=== PATIENT | male | born 1985 | race Caucasian/White ===

== ENCOUNTER 2020-04-26 10:44 | Outpatient (REF) | payer MEDICAID, SELFPAY | END 2020-04-26 10:45 | disposition home or self-care (01) | LOC: HO.LAB 10:44 | PROVIDERS: Visit Provider Internal Medicine | DX: Z20.822 Contact with and (suspected) exposure to COVID-19 (principal) | CPT/HCPCS: 36415; C9803; U0003; U0005 ==

== ENCOUNTER 2021-06-23 16:35 | Emergency (ER) | payer MEDICAID, SELFPAY ==
--- NOTE | ~2021-06-23 | XR_ITS ---
EXAMINATION: XR CHEST CLINICAL INFORMATION: Fevers chills and cough. Influenza a positive COMPARISON: 06/11/2017 and 10/31/2016 TECHNIQUE: 2 frontal views of the chest and one lateral view. FINDINGS: No lower respiratory tract infection. No focal pneumonia. Suboptimal depth of inspiration. Lung volumes grossly preserved. Heart and mediastinum within normal limits for technique. Normal gas pattern. No acute osseous finding. XR/XR chest 2V IMPRESSION: No acute disease. No focal pneumonia
[2021-06-23 16:51] VITALS: BP 147/92; PULSE 112; RESP 18; TEMP 36; O2SAT 97; BMI 33.4
[2021-06-23 17:31] LABS: Influenza A Positive (Negative); Influenza B2 Negative (Negative)
[2021-06-23 17:32] LABS: COVID-19 Test Negative (Negative); IDNOW Serial# 16C4AD1C
[2021-06-23] MEDS: predniSONE 20 MG TABLET 60 MG PO (17:48)
[2021-06-23] MEDS: Albuterol Sulfate 90 MCG 8 GM INHALER 2 PUFF INHALE (17:52)
[2021-06-23 17:53] VITALS: PULSE 112; O2SAT 97
--- NOTE | 2021-06-23 18:03 | ED.FEVER ---
HPI - Fever General Chief Complaint: Fever Stated Complaint: Flu like symptoms Time Seen by Provider: 06/23/21 17:37 Source: patient and family Mode of arrival: ambulatory Limitations: language barrier (Irish-speaking) History of Present Illness HPI Narrative: 36-year-old male who is Irish-speaking presenting to the ED with significant other at bedside with complaints of subjective fevers, chills, fatigue, malaise, myalgias, nasal congestion/rhinorrhea, dry cough with wheezing for the past 2 days worse today. Reports that he is not vaccinated to COVID a flu. Reports that he has an autistic son who has therapist and nurses that come to the house and 1 of them must have been sick per the significant other and her children has similar symptoms. He denies any recent travel. He denies any dizziness, neck pain/stiffness, trouble swallowing or breathing, chest pain or shortness of breath, dyspnea on exertion, orthopnea, palpitations, paresthesias, nausea/vomiting/diarrhea constipation, black or bloody stools, abdominal pain, dysuria, hematuria, abnormal penile discharge, lower extremity edema or calf tenderness or any other symptoms complaints or concerns at this time. MD elicited complaint: fever and malaise Onset (ago): day(s) (2) Context: other(s) with similar symptoms Exacerbating factors: nothing Relieving factors: acetaminophen and ibuprofen Associated symptoms: chills, myalgias, rhinorrhea, nasal congestion and cough Treatments prior to arrival fever: none Related Data Previous Rx's Medication Instructions Recorded acetaminophen 500 mg tablet 1,000 mg PO QID PRN #14 tab 06/23/21 (Tylenol Extra Strength) codeine 10 mg-guaifenesin 100 mg/5 5 ml PO Q6H PRN #120 ml 06/23/21 mL oral liquid (Guaifenesin AC) ibuprofen 800 mg tablet 800 mg PO Q8H PRN #14 tab 06/23/21 oseltamivir 75 mg capsule (Tamiflu) 75 mg PO BID 5 Days #10 cap 06/23/21 prednisone 20 mg tablet 40 mg PO DAILY 5 Days #10 tab 06/23/21 Allergies Allergy/AdvReac Type Severity Reaction Status Date / Time No Known Allergies Allergy Unverified 11/20/19 19:20 Review of Systems Review of Systems: Constitutional : + subjective fevers/chills/fatigue/malaise, No Weight loss, No Night Sweats ENT/Mouth : + nasal congestion/rhinorrhea, No Hearing loss, No Ear Pain, No Sinus Pain, No Hoarseness, No sore throat, No Swallowing Difficulty Eyes: No Eye Pain, No Swelling, No Redness, No Foreign Body, No Discharge, No Vision Changes Cardiovascular : No Chest Pain, No SOB, No Dyspnea on Exertion, No Orthopnea, No Edema, No Palpitations Respiratory : + Cough, No Sputum, + Wheezing, No Smoke Exposure, No Dyspnea Gastrointestinal : No Nausea, No Vomiting, No Diarrhea, No Constipation, No abdominal Pain, No Hematochezia, No Melena Genitourinary : no irregular bleeding, No Dysuria, No Urinary Frequency, No Hematuria, No Urinary Incontinence, No Urgency, No Flank Pain, No Urinary Flow Changes, No Hesitancy Musculoskeletal : No joint pain, + Myalgias, No Joint Swelling Skin : No Skin Lesions, No rash Neuro : No Weakness, No Numbness, No Paresthesias, No Loss of Consciousness, No Dizziness, No Headache Psych : No Anxiety/Panic, No Depression, No SI/HI/AH/VH, No Social Issues, Heme/Lymph: No Bruising, No Bleeding,No Lymphadenopathy Endocrine : No Polyuria, No Polydipsia, No Temperature Intolerance Yes all other systems are reviewed and are negative [facility] Past Medical History Attestation statement: The following information was validated with the patient. Social History Social History Advance Directives: No Advance Directives Information Provided: No Physical Exam Vital Signs: Vital Signs: Last Vital Signs Temp 101.2 F H 06/23/21 18:10 Pulse 104 H 06/23/21 18:10 Resp 17 06/23/21 18:10 BP 153/98 H 06/23/21 18:10 Pulse Ox 97 06/23/21 18:10 BMI result Body Mass Index 33.4 vital signs have been reviewed as normal and appeared to be correct. Blood pressure 147/92. Heart rate 112. Respiration rate normal. Temperature normal. Oxygen saturation normal. Appearance: Alert. Oriented X3. No acute distress. Head: Normal external exam. Normocephalic. Atraumatic. Eyes: PERRLA. EOMI. Conjunctiva and sclera normal. Eyelids normal. ENT: EAC normal. TM's Normal. No septal hematoma noted. No hemotympanum noted. Pharynx normal. Uvula midline. Moist mucous membranes. No lesions/ulcerations or masses noted on the tongue. Normal voice. No trismus noted. No drooling noted. No muffled voice noted. Neck: Normal inspection. Neck supple. FROM. No adenopathy. Thyroid Normal. No tracheal deviation noted. No crepitus is noted. No meningeal signs. No neck mass noted. No signs of trauma noted. CVS: Normal heart rate and rhythm. Heart sound normal. Pulses normal throughout. No murmurs/rales/gallops. Respiratory: No respiratory distress. Painless inspiration. Patient has mild decreased breath sounds with inspiratory and expiratory wheezing in the lower bases. No rhonchi/rales noted. Chest nontender. No crepitus is noted. No signs of trauma noted. No accessory muscle usage noted or decreased air movement noted. No signs of trauma. Abdomen: Soft and nontender. Bowel sounds normal in all 4 quadrants. No distention noted. No organomegaly noted. No visible injury noted. Back: No CVA tenderness. Full range of motion noted. Nontender. No signs of trauma. Patient neuro intact bilaterally and distally on all 4 extremities. Patient's reflexes intact bilaterally and distally on all 4 extremities. No rashes/lesion/induration/fluctuance or signs of infection noted. Skin: Skin warm and dry. Normal skin color. Normal skin turgor. No rashes/lesions/lacerations noted. Extremities: No lower extremity edema. No calf tenderness is noted. Extremities exhibit normal range of motion and nontender. Neuro: Oriented X 3. No motor deficit. No sensory deficit. Reflexes normal. Normal steady gait. No focal neuro deficits noted. CN's II-XII intact bilaterally? Vascular: + radial pulses/+ 2 distal pedal pulses/+2 dorsalis pedis b/l. Normal cap refill. No cyanosis noted to upper extremity nails and lower extremity toes nails. Course Course Course Narrative: 5:45pm - 36-year-old male who is Irish-speaking presenting to the ED with significant other at bedside with complaints of subjective fevers, chills, fatigue, malaise, myalgias, nasal congestion/rhinorrhea, dry cough with wheezing for the past 2 days worse today. Reports that he is not vaccinated to COVID a flu. Reports that he has an autistic son who has therapist and nurses that come to the house and 1 of them must have been sick per the significant other and her children has similar symptoms. Patient positive for influenza A. Will obtain a chest x-ray. Provide an albuterol inhaler and 60 mg of prednisone. Then re-evaluate. Reevaluation(s) Reevaluation #1: Chest x-ray negative. Will DC home with Tamiflu and prednisone and albuterol inhaler and instructions return if any new or worsening symptoms. Patient and significant other at bedside understand agree this plan. Time: 18:30 MDM - Fever Medical Records Attestation: I reviewed the patient's medical records. Lab Data Attestation: I reviewed the patient's lab results. Labs: Lab Results 06/23/21 06/23/21 Range/Units 16:58 16:58 COVID-19 (BEAU) Negative (Negative) COVID-19 Clin Com See Note Influenza Type A (SARBJIT) Positive A (Negative) Influenza Type B (SARBJIT) Negative (Negative) Influenza A & B Note See Note Imaging Data Chest x-ray: Attestation: I personally reviewed and interpreted this imaging study as follows: Radiologist's impression: FINDINGS: No lower respiratory tract infection. No focal pneumonia. Suboptimal depth of inspiration. Lung volumes grossly preserved. Heart and mediastinum within normal limits for technique. Normal gas pattern. No acute osseous finding. XR/XR chest 2V IMPRESSION: No acute disease. No focal pneumonia Discharge Plan Discharge Clinical Impression: Influenza A, Fever Patient Disposition: Home, Self-Care Instructions: Fever in Adults (ED), Influenza (DC), Flu Shot (Vaccine) for Adults (ED) Prescriptions: New oseltamivir [Tamiflu] 75 mg capsule 75 mg PO BID 5 Days Qty: 10 0RF prednisone 20 mg tablet 40 mg PO DAILY 5 Days Qty: 10 0RF acetaminophen [Tylenol Extra Strength] 500 mg tablet 1,000 mg PO QID PRN (Reason: fever or pain) Qty: 14 0RF ibuprofen 800 mg tablet 800 mg PO Q8H PRN (Reason: pain) Qty: 14 0RF codeine-guaifenesin [Guaifenesin AC] 10-100 mg/5 mL liquid 5 ml PO Q6H PRN (Reason: cold symptoms) Qty: 120 0RF Referrals: [place] [Primary Care Provider] - Stand Alone Forms: Work/School Release Print Language: Irish
[2021-06-23 18:10] VITALS: BP 153/98; PULSE 104; RESP 17; TEMP 38.4; O2SAT 97
[2021-06-23] MEDS: Ibuprofen 800 MG TABLET PO (18:15)
== END 2021-06-23 18:42 | disposition home or self-care (01) ==
PROVIDERS: Student in an Organized Health Care Education/Training Program; Emergency Provider Internal Medicine
DX: J10.1 Influenza due to other identified influenza virus with other respiratory manifestations (principal); R50.9 Fever, unspecified; M79.10 Myalgia, unspecified site; R05.9 Cough, unspecified; Z20.822 Contact with and (suspected) exposure to COVID-19; Z79.899 Other long term (current) drug therapy
CPT/HCPCS: 71046; 87502; 87635; 94640; 94664; 99284

== ENCOUNTER 2022-11-10 14:52 | Outpatient (REF) | payer MEDICAID, SELFPAY ==
--- NOTE | ~2022-11-10 | XR_ITS ---
EXAMINATION: XR HAND, RIGHT CLINICAL INFORMATION: Point tenderness COMPARISON: None available. TECHNIQUE: PA, lateral, and oblique views of the right hand. FINDINGS: The bones and soft tissues are normal. No fracture. Alignment is anatomic. Joint spaces are maintained. No erosions or soft tissue calcifications. XR/XR hand RT min 3V IMPRESSION: Normal right hand.
== END 2022-11-10 14:53 | disposition home or self-care (01) ==
LOC: HO.HHCX 14:52
PROVIDERS: Visit Provider Student in an Organized Health Care Education/Training Program
DX: M79.641 Pain in right hand (principal)
CPT/HCPCS: 73130

== ENCOUNTER 2022-11-10 16:03 | Outpatient (REF) | payer MEDICAID, SELFPAY ==
[2022-11-10 17:31] LABS: MANUAL DIFF FLAG NO
[2022-11-10 17:39] LABS: Basophils Absolute Auto 0.1 X10*3/uL (0.0-0.2); Basophils Percent Auto 0.4 % (0-2); Eosinophils Absolute Auto 0.2 X10*3/uL (0.0-0.4); Eosinophils Percent Auto 1.1 % (0-4); Hematocrit 46.3 % (42.0-52.0); Hemoglobin 15.7 g/dl (14.0-18.0); Imm Gran Abs Auto 0.04 X10*3/uL (0.00-0.03); Imm Gran Pct Auto 0.3 % (0.0-0.4); Lymphocytes Absolute Auto 2.8 X10*3/uL (1.2-4.9); Lymphocytes Percent Auto 21.2 % (20-40); Mean Corpuscular HGB Conc 33.9 g/dl (31.0-36.0); Mean Corpuscular Volume 85.6 fL (80.0-98.0); Mean Platelet Volume 9.7 fL (9.4-12.4); Monocytes Absolute Auto 0.9 X10*3/uL (0.1-1.2); Monocytes Percent Auto 6.4 % (2-11); Neutrophils Absolute Auto 9.3 x10*3/uL (2.0-8.3); Neutrophils Percent Auto 70.6 % (45-73); Platelet Count 301 X10*3/uL (160-400); Red Blood Count 5.41 X10*6/uL (4.60-5.80); Red Cell Distribution Width 13.9 % (11.0-16.0); White Blood Count 13.2 X10*3/uL (4.8-10.8)
[2022-11-10 17:57] LABS: Alanine Aminotransferase 31 U/L (0-40); Albumin Level 4.3 g/dL (3.5-5.0); Alkaline Phosphatase 84 U/L (39-117); Anion Gap 11 (12-20); Aspartate Amino Transferase 18 U/L (5-37); Bilirubin Total 0.4 mg/dL (0.0-1.0); Blood Urea Nitrogen 10 mg/dL (9-16); Carbon Dioxide 27 mmol/L (22-29); Chloride 102 mmol/L (96-108); Estimated Glomerular Filt Rate > 60; Glucose Random 83 mg/dL (60-115); Potassium 4.3 mmol/L (3.3-5.1); Sodium 136 mmol/L (135-145); Total Protein 7.3 g/dL (6.5-8.0); Uric Acid 6.1 mg/dL (3.4-7.0)
[2022-11-10 18:14] LABS: TSH reflex Free T4 1.26 uIU/mL (0.32-4.0)
== END 2022-11-10 16:04 | disposition home or self-care (01) ==
LOC: HO.HHCL 16:03
PROVIDERS: Visit Provider Student in an Organized Health Care Education/Training Program
DX: M79.641 Pain in right hand (principal)
CPT/HCPCS: 36415; 80053; 84443; 84550; 85025

== ENCOUNTER 2023-10-14 20:55 | Emergency (ER) | payer MEDICAID, SELFPAY ==
[2023-10-14 21:09] VITALS: BP 133/86; PULSE 88; RESP 18; TEMP 36.8; O2SAT 96; BMI 33.2
[2023-10-14 23:14] VITALS: BP 140/78; PULSE 86; RESP 16; TEMP 37.2; O2SAT 98
--- NOTE | 2023-10-15 00:16 | ED_ITS ---
HPI - General Adult General Chief complaint: Skin/Abscess/Foreign Body Stated complaint: lump on abdomen Time Seen by Provider: 10/15/23 00:16 History of Present Illness ED Provider: Hilario TALLEY narrative: The patient is a 38-year-old male who is generally healthy who is here for evaluation of some redness and pain on the skin of his lower abdomen. He says that he has had a bump for some time on his skin in his area that he attributes to his belt. He has never had an infection in this area before. No definite fever, sweats, chills. No nausea or vomiting. He reports increased urination however. Related Data Previous Rx's ?Medication ?Instructions ?Recorded acetaminophen 500 mg tablet 1,000 mg (2 x 500 mg) PO QID PRN 06/23/21 (Tylenol Extra Strength) fever or pain #14 tabs codeine 10 mg-guaifenesin 100 mg/5 5 ml PO Q6H PRN cold symptoms #120 06/23/21 mL oral liquid (Guaifenesin AC) mL ibuprofen 800 mg tablet 800 mg PO Q8H PRN pain #14 tabs 06/23/21 oseltamivir 75 mg capsule (Tamiflu) 75 mg PO BID 5 days #10 caps 06/23/21 prednisone 20 mg tablet 40 mg (2 x 20 mg) PO DAILY rash 5 06/23/21 days #10 tabs cephalexin 500 mg capsule 500 mg PO QID 8 days #32 caps 10/15/23 sulfamethoxazole 800 1 tab PO BID 8 days #16 tabs 10/15/23 mg-trimethoprim 160 mg tablet (Bactrim DS) Allergies Allergy/AdvReac Type Severity Reaction Status Date / Time No Known Allergies Allergy Unverified 10/14/23 21:18 Review of Systems Review of Systems: Yes all other systems are reviewed and are negative PMFSH Social History Social History Advance Directives: No Advance Directives Information Provided: Yes Do you have a plan to hurt others: No Plan Physical Exam ED Vital Signs: Vital Signs - 24 hr 10/14/23 21:09 10/14/23 23:14 Temperature 98.2 F 98.9 F Pulse Rate 88 86 Respiratory Rate 18 16 Blood Pressure 133/86 140/78 H Pulse Oximetry 96 98 Oxygen Delivery Method Room Air Room Air BMI result Body Mass Index 33.2 Const Other: Patient is a healthy looking 38-year-old who does not appear in acute distress. HENMT Other: The face is symmetrical. ?Mucous membranes moist. Eyes Other: Pupils are round equal, conjunctivae are clear, extraocular movements intact Neck Other: Moving his neck easily Resp Effort & Inspection: normal respiratory effort Auscultation: clear to auscultation bilaterally Cardio Rate: regular rate Rhythm: regular rhythm Heart sounds: S2 normal heart sound present GI Other: The patient has erythema to the skin of the lower abdomen. The patient has an area of particular tenderness to the right of the midline in the lower abdomen and there is an area of soft tissue swelling which seems particularly tender but not necessarily fluctuant. There is also an area of prominence and what seems to be mild swelling to the left of the midline but this is not tender and the patient says this is chronic. Skin Other: The skin is intact. There is erythema to the skin of the lower abdomen at the belt line. There is some soft tissue swelling on the right side of the midline which is most tender. No drainage. Neuro Other: The patient is awake, alert, appropriate and grossly neurologically intact. Extrem Other: Extremities are unremarkable, no deformities Medications Administered Discontinued Medications Generic Name Dose Route Start Last Admin Trade Name Freq PRN Reason Stop Dose Admin Cephalexin HCl 1,000 mg 10/15/23 00:53 10/15/23 01:29 Cephalexin 500 Mg Capsule PO 10/15/23 00:54 1,000 mg ONCE ONE Administration Trimethoprim/Sulfamethoxazole 1 tab 10/15/23 00:58 10/15/23 01:29 Sulfamethox/Trimeth 800/160 Tablet PO 10/15/23 00:59 1 tab ONCE ONE Administration Medical Decision Making Medical Decision Making [facility] Narrative: Patient has a soft tissue skin infection to the skin of the lower abdominal wall at the level of the belt line. To the right of the midline is an area of swelling which may represent an early abscess. I performed a bedside ultrasound that did not show any significant amount of fluid accumulation. There may be some sebaceous material present. Given the absence of significant fluid on ultrasound I felt that this would not be an appropriate case for incision and drainage. The patient was started on cephalexin and sulfamethoxazole and will be discharged to follow up with his PCP. Lab Data Labs: Lab Results 10/15/23 Range/Units 00:46 Urine Color Yellow Urine Appearance Clear Urine pH 5.5 (5.0-9.0) Ur Specific [place] >= 1.030 H (1.005-1.025) Urine Protein Negative (Neg-Trace) mg/dL Urine Glucose (UA) Negative (Negative) mg/dL Urine Ketones Trace (Negative) mg/dL Urine Blood Negative (Negative) Urine Nitrite Negative (Negative) Ur Leukocyte Esterase Negative (Negative) Discharge Plan Discharge Clinical Impression: Cellulitis of abdominal wall Patient Disposition: Home, Self-Care Instructions: Cellulitis (ED) Additional Instructions: You have an infection in the skin of your lower abdomen. This kind of infection is called a cellulitis. You have been started on two antibiotics. Please take the cephalexin 4 times a day, approximately every 6 hours. Please take the sulfamethoxazole/trimethoprim (Bactrim) 2 times a day, approximately every 12 hours. Please try to make an appointment with a primary care doctor for follow up. If you feel things are getting significantly worse please return to the emergency room for another evaluation. Prescriptions: New cephalexin 500 mg capsule 500 mg PO QID 8 Days Qty: 32 0RF sulfamethoxazole-trimethoprim [Bactrim DS] 800-160 mg tablet 1 tab PO BID 8 Days Qty: 16 0RF No Action oseltamivir [Tamiflu] 75 mg capsule 75 mg PO BID 5 Days Qty: 10 0RF prednisone 20 mg tablet 40 mg PO DAILY 5 Days Qty: 10 0RF acetaminophen [Tylenol Extra Strength] 500 mg tablet 1,000 mg PO QID PRN (Reason: fever or pain) Qty: 14 0RF ibuprofen 800 mg tablet 800 mg PO Q8H PRN (Reason: pain) Qty: 14 0RF codeine-guaifenesin [Guaifenesin AC] 10-100 mg/5 mL liquid 5 ml PO Q6H PRN (Reason: cold symptoms) Qty: 120 0RF Referrals: Christi Hollis [employer] [Nurse Practitioner] - (abdominal wall cellulitis) Interventions: ED Discharge Assessment Last Done: 10/15/23 01:12 Discharge Date/Time: 10/15/23 01:35 Print Language: Faroese
[2023-10-15 00:59] LABS: Appearance Urine Clear; Color Urine Yellow; Glucose Urine UA Negative (Negative); Leukocyte Esterase Urine Negative (Negative); Nitrite Urine Negative (Negative); PH 5.5 (5.0-9.0); Specific Gravity - Urine >= 1.030 (1.005-1.025); Urine Blood Negative (Negative); Urine Ketones Trace mg/dL (Negative); Urine Protein Negative (Neg-Trace)
[2023-10-15 01:12] VITALS: BP 140/78; PULSE 86; RESP 16; TEMP 37.2; O2SAT 98
[2023-10-15] MEDS: cephALEXin 500 MG CAPSULE 1000 MG PO (01:29)
[2023-10-15] MEDS: Sulfamethox/Trimeth 800/160 TABLET 1 TAB PO (01:29)
== END 2023-10-15 01:35 | disposition home or self-care (01) ==
PROVIDERS: Emergency Provider Emergency Medicine
DX: L03.311 Cellulitis of abdominal wall (principal); R35.0 Frequency of micturition
CPT/HCPCS: 81003; 99283

== ENCOUNTER → 2023-11-14 15:45 | Outpatient (REF) | payer MEDICAID, SELFPAY | LOC: HO.SL 15:45 | PROVIDERS: PCP Nurse Practitioner Primary Care; Visit Provider Nurse Practitioner Primary Care | DX: R04.0 Epistaxis (principal); R06.83 Snoring | CPT/HCPCS: 95806 ==

== ENCOUNTER → 2023-11-14 19:00 | Outpatient (BNV) | payer MEDICAID, SELFPAY | PROVIDERS: PCP Nurse Practitioner Primary Care; Visit Provider Internal Medicine | DX: G47.33 Obstructive sleep apnea (adult) (pediatric) (principal) | CPT/HCPCS: 95806 ==

== ENCOUNTER → 2024-03-02 20:30 | Outpatient (REF) | payer MEDICAID, SELFPAY | LOC: HO.SL 20:30 | PROVIDERS: PCP Nurse Practitioner Primary Care; Visit Provider Nurse Practitioner Primary Care | DX: Z13.89 Encounter for screening for other disorder (principal) ==

== ENCOUNTER 2024-03-19 12:42 | Outpatient (AMB) | payer MEDICAID, SELFPAY ==
--- NOTE | 2024-03-19 13:00 | MHC.OFFVIS ---
Intake Visit Reasons: Left shoulder pain and instability Intake Note: Harris is a 39 year old right hand dominant male who presents with complaints of recurrent left shoulder pain and instability. The patient states that he first dislocated his left shoulder proximally 30 years ago. He does not recall what he was doing when his shoulder dislocated. He states that since that time he has had several more pain full episodes of instability. He has done physical therapy exercises which aggravated his pain. He has also tried Tylenol and anti-inflammatory medicines which gave him minimal relief. Soundscriber Mechanic Required: Yes Soundscriber Mechanic Language: House Calls Nurse Name: BYRON Wood/ANJALI Information Interpreted: clinical only Allergies No Known Allergies Allergy (Unverified 03/19/24 13:04) Medication List - Last Reconciled 03/19/24 by Heri Zhang MD acetaminophen (Tylenol Extra Strength) 1,000 mg (2 x 500 mg) PO QID PRN cephalexin 500 mg PO QID 8 days codeine-guaifenesin 10-100 mg/5 mL (Guaifenesin AC) 5 mL PO Q6H PRN ibuprofen 800 mg PO Q8H PRN oseltamivir (Tamiflu) 75 mg PO BID 5 days prednisone 40 mg (2 x 20 mg) PO DAILY 5 days sulfamethoxazole-trimethoprim 800-160 mg (Bactrim DS) 1 tab PO BID 8 days PFSH Social History (Updated 03/19/24 @ 13:05 by BYRON Burris) Current occupational status: employed 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, 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 Physical Exam Const Other: Well-nourished well-developed very friendly male awake alert and oriented x3 in no acute distress Extrem Other: Left shoulder examination shows full range of motion when compared to his right shoulder, positive impingement signs, positive apprehension test, positive anterior drawer test Results Reviewed Results Reviewed: X-rays of the patient's left shoulder show moderate acromioclavicular joint narrowing, a type 2 acromion, no acute bony abnormalities Assessment & Plan Assessment & Plan (1) Instability of left shoulder joint: Code(s): M25.312 - Other instability, left shoulder Category: Medical Plan Mr. Khari Galvez presents with left shoulder pain and symptoms of instability most likely due to an anterior labral tear. Thus, I will send the patient for a left shoulder MRI arthrogram. I will see him back once the MRI is completed to discuss the findings and treatment options. He will continue with his activity modifications in the meantime. Feel free to call me at any time should questions regarding his orthopedic management arise. Thank you very much for asking me to see this very friendly gentleman. I spent 22 minutes in reviewing the patient's records and imaging studies, seeing the patient and documenting in the medical record. Orders: Orders FL arthrogram shoulder LT Today M25.312 - Other instability, left shoulder MR shoulder LT wo con Today M25.312 - Other instability, left shoulder XR shoulder LT min 2V Today M25.512 - Pain in left shoulder Coding Level of Care Code New Pt Level 3 (30004) Complex EM visit Add On G2211 Diagnoses Instability of left shoulder joint M25.312
== END 2024-03-19 13:16 | disposition home or self-care (01) ==
PROVIDERS: PCP Nurse Practitioner Primary Care; Visit Provider Orthopaedic Surgery
DX: M25.312 Other instability, left shoulder (principal)
CPT/HCPCS: 99203

== ENCOUNTER 2024-03-19 13:02 | Outpatient (REF) | payer MEDICAID, SELFPAY ==
--- NOTE | ~2024-03-19 | XR_ITS ---
CLINICAL HISTORY: M25.512 - Pain in left shoulder 2 view left shoulder Comparison: None Findings: No fractures or dislocations. There is mild subchondral sclerosis within the greater tuberosity and likely tiny subchondral geodes. No erosions. No radiopaque foreign body. IMPRESSION: No acute findings, no fractures Findings suspicious for rotator cuff pathology This document has been electronically signed by: Geovany Reese MD on 03/20/2024 07:59:18
== END 2024-03-19 13:03 | disposition home or self-care (01) ==
LOC: HO.HOSX 13:02
PROVIDERS: Visit Provider Orthopaedic Surgery
DX: M25.512 Pain in left shoulder (principal); M25.312 Other instability, left shoulder
CPT/HCPCS: 73030; 99202

== ENCOUNTER 2024-04-02 12:46 | Outpatient (REF) | payer MEDICAID, SELFPAY ==
--- NOTE | ~2024-04-02 | MR_ITS ---
EXAMINATION: MR ARTHROGRAM SHOULDER, WITH CONTRAST, LEFT CLINICAL INFORMATION: Instability, possible labral tear. COMPARISON: No prior MR. Fluoroscopy arthrogram left shoulder earlier same day. TECHNIQUE: MRI of the shoulder was performed following the intra-articular administration of a dilute gadolinium-containing solution (arthrogram) on a 1.5 Lisa Siemens high-field scanner. Standard sequences were utilized. FINDINGS: Rotator Cuff and Biceps Tendon: SUPRASPINATUS: There is a small rim rent type tear of the anterior supraspinatus tendon from the medial footplate attachment measuring approximately 3 x 3 mm, encompassing approximately 30% the attachment of the tendon (series 12, image 12). Mild associated undersurface fraying in the distal critical zone. There is a 12 x 5 mm partial undersurface degenerative type tear/fraying of the mid to distal tendon within the critical zone, approximately 30% thickness (series 12, image 14). There is increased T2 signal of the anterior most tendon at the myotendinous junction suggestive of tendinopathy. There is no full-thickness tear or tendinous retraction. The muscle belly appears normal. INFRASPINATUS: Tiny rim rent type tear at the medial footplate attachment measuring 3 mm (series 12, image 15). Mild fraying of the tendon undersurface in the critical zone, also approximately 30% thickness. No full-thickness tear or tendinous retraction. The muscle belly appears normal. SUBSCAPULARIS: There is undersurface fraying/degenerative type tearing of the proximal tendon, approximately 50% width (series 9 and series 10, images 13-16). Mild thickening of the distal tendon with mildly increased T2 signal consistent with tendinopathy. Muscle belly is normal. TERES MINOR: Intact and normal in signal. Muscle belly is normal. BICEPS LONG HEAD: Normally located within the bicipital groove. Mildly increased fluid/contrast within the tendon sheath suggestive of mild tenosynovitis. Tendon has normal signal and is intact both in the groove and rotator cuff interval. AC Joint and Acromiohumeral Arch: There is mild to moderate arthritis of the AC joint, with mild periarticular edema and minimal undersurface spurring. Spurring mildly contacts and encroaches upon the superior supraspinatus myotendinous junction. No gross outlet stenosis. There is a mildly downsloping lateral acromion. There is no subacromial spurring. Glenohumeral Joint and Labrum: There is an irregular tear along the length of the superior labrum, extending mildly into the superior anterior labrum region. (SLAP tear, images 9-12 on series 12). There is a tiny focus of subchondral bone plate edema in the most superior glenoid at 11:00. There is a small focal tear of the inferior labrum spanning the 5-6 o'clock axis of the glenoid (series 12, images 11-13). Remainder of the labrum appears intact The glenohumeral joint is normal in appearance with normal alignment and no evidence of significant cartilage abnormality. There is no humeral articular subchondral bone plate edema. Osseous Structures: No fracture or additional foci of gross bone marrow edema. No abnormal infiltrating bone marrow signal. Spino-glenoid Notch: Normal. Quadrilateral Space: Normal. Other: Glenohumeral ligaments are intact without thickening. There is mild subacromial/subdeltoid fluid signal consistent with bursitis. MR/MR shoulder LT w con IMPRESSION: 1. Significant SLAP tear superior labrum. Small focus of abutting superior glenoid subchondral bone plate edema. 2. Small tear inferior labrum spanning 5-6 o'clock axis . 3. Rim rent type tears of the anterior medial supraspinatus and anterior medial infraspinatus tendons, with associated 30% undersurface fraying/degenerative tearing in the critical zones of both tendons. 4. Degenerative type tearing of the articular surface proximal subscapularis tendon extending approximately 50% width 5. No significant cartilaginous abnormality. 6. Mild arthritic spurring of the AC joint. No significant outlet stenosis. 7. Mild subacromial/subdeltoid bursitis. Electronically signed by: Ignacio To MD 04/03/2024 04:02 PM [facility]
--- NOTE | ~2024-04-02 | FL_ITS ---
LEFT SHOULDER ARTHROGRAM INDICATIONS: Left shoulder pain. Intra-articular gadolinium injection is needed prior to MRI. PROCEDURE: Risks and benefits and possible complications were discussed with the patient and the consent form was signed. The patient was placed supine on the fluoroscopy table. The left shoulder was prepped and draped in normal sterile fashion. 1% buffered lidocaine was used for anesthesia. A 22-gauge spinal needle was used to access the shoulder joint. Intra-articular position of the needle within the shoulder joint was verified using 3 cc of Omnipaque 300. A total of 10 mL of gadolinium/saline (1:200) contrast mixture was then injected into the shoulder joint. The needle was then removed and a Band-Aid was applied to the injection site. The patient tolerated the procedure well and was sent to MRI. There were no immediate complications. FL/FL arthrogram shoulder LT IMPRESSION: Successful fluoroscopic guided intra-articular instillation of dilute gadolinium into the left shoulder joint. Patient will undergo subsequent left shoulder MRI. The procedure was performed by steven Esteban PA-C, and directly supervised by Dr. To. Electronically signed by: Ignacio To MD 04/03/2024 05:00 PM [facility] [place]
[2024-04-02] MEDS: gadobutroL 2 ML VIAL IVPUSH (14:29)
== END 2024-04-02 12:47 | disposition home or self-care (01) ==
LOC: HO.XRAY 12:46
PROVIDERS: Visit Provider Orthopaedic Surgery
DX: S43.432A Superior glenoid labrum lesion of left shoulder, initial encounter (principal); X58.XXXA Exposure to other specified factors, initial encounter; Y93.9 Activity, unspecified; Y92.9 Unspecified place or not applicable; Y99.9 Unspecified external cause status
CPT/HCPCS: 23350; 73040; 73222; A9585

== ENCOUNTER → 2024-04-02 12:49 | Outpatient (BNV) | payer MEDICAID, SELFPAY | PROVIDERS: Visit Provider Radiology Diagnostic Radiology | DX: M25.512 Pain in left shoulder (principal) | CPT/HCPCS: 23350; 73040; 73222 ==

== ENCOUNTER 2024-05-13 10:22 | Outpatient (AMB) | payer MEDICAID, SELFPAY ==
--- NOTE | 2024-05-13 10:37 | A.OFFVIS_ITS ---
Vital Signs 05/13/24 10:40 Height 5 ft 8 in Weight 218 lb BMI 33.1 Intake Visit Reasons: OV- Left shoulder MRI review Intake Note: Harris is a 39 year old right hand dominant male who presents with complaints of recurrent left shoulder pain and instability. The patient states that he first dislocated his left shoulder proximally 30 years ago. He does not recall what he was doing when his shoulder dislocated. He states that since that time he has had several more pain full episodes of instability. He has done physical therapy exercises which aggravated his pain. He has also tried Tylenol and anti-inflammatory medicines which gave him minimal relief. 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 Physical Exam Vital Signs: BMI result Body Mass Index 33.1 Const Other: Well-nourished well-developed very friendly male awake alert and oriented x3 in no acute distress Extrem Other: Left shoulder examination shows slightly decreased range of motion when compared to his right shoulder, 4+ out of 5 strength with supraspinatus testing, positive impingement signs, positive apprehension test, tenderness over his acromioclavicular joint Results Reviewed Results Reviewed: MRI of the patient's left shoulder shows ?a small rim rent type tear of the anterior supraspinatus tendon, undersurface degenerative tearing of the proximal subscapularis measuring approximately 50% of the tendon width, irregular tear along the superior labrum, small focal tear of the inferior labrum? Assessment & Plan Assessment & Plan (1) Instability of left shoulder joint: Code(s): M25.312 - Other instability, left shoulder Category: Medical Plan Mr. Khari Galvez presents with left shoulder instability due to partial- thickness rotator cuff tearing and labral tearing. I had a lengthy discussion with the patient regarding the treatment options. At this point he appears to be failing continued non operative treatments. He is considering undergoing surgical intervention. Thus, I will arrange for him to have a follow-up appointment with my partner, Dr. Harp, who can further discuss with the patient the treatment options. The patient will continue with his activity modifications in the meantime. I spent 22 minutes in reviewing the patient's records and imaging studies, seeing the patient and documenting in the medical record. Coding Level of Care Code Est Pt Level 3 (73362) Complex EM visit Add On G2211 Diagnoses Instability of left shoulder joint M25.312
[2024-05-13 10:40] VITALS: BMI 33.1
--- OUTSIDE RECORDS SUMMARY | 2024-05-13 12:17 | XMS_ITS | Clinical Summary ---
Author Organization [employer] Address [address] [place] [address] [address] [place] [address] Care Team Providers Care Certified Medical Coder Name Role Phone Bunny Christi GRISSOM Primary Care Provider [phone] Allergies No known active allergies Medications nicotine (Nicoderm, Step 1) 21 MG/24HR patchIndication s:Tobacco use disorder Place 1 patch on the skin 1 (one) time each day at the same time. May remove at bedtime. 42 patch 3 Active Blood Pressure kit 1 each 2 times daily. 1 kit 4 10/19/19 25 Active nicotine polacrilex (Nicorette) 4 MG gumIndications: Tobacco use disorder Chew 1 each (4 mg) if needed for smoking cessation. Every 1-2 hours as needed in place of cigarettes 100 each 11 4 Active Active Problems Problem Noted Date Diagnosed Date Elevated blood pressure reading 11/11/2022 Assessment & Plan (11/11/2022 4:58 PM EDT): Noted significantly elevated BP today. Denies Hx of HTN. After pain control, BP improved, but still elevated. No alarming signs and Sx. EKG today NSR, QTc 406, HR 71. -Advise pt to f up w PCP to monitor BP in the next 4 wk. If ongoing elevated BP will need to start antihypertensives. -Advise diet changes and low salt diet. Right hand pain 11/11/2022 Assessment & Plan (11/11/2022 5:03 PM EDT): Pt w pain along 5th distal metacarpal region, w generalized swelling of the hand, w no apparent joint affected. From Hx and examination there is no immediate concern for infection. Hand XR showed no evidence of fracture. Will need to rule out gout and other inflammatory conditions. -Ibuprofen 400 mg given today in [facility]. -Ordered uric acid test, chem, CBC, TSH. -Advised rest, NSAIDs BID. -Alarm signs and Sx explained at length to pt, so that he may need to go to ED or return to [facility] if no improvement in Sx. Tobacco use disorder 11/11/2022 Assessment & Plan (11/11/2022 5:07 PM EDT): -Tobacco: 1 pack a day for 17 years. -advised x tobacco cessation program -- referred today. Encounters Date Type Department Care Team Description 03/26/2024 Orders Only [facility] [address] [place] [phone] Christi Hollis ANP ALFONSO (obstructive sleep apnea) (Primary Dx) 02/20/2024 Telephone [facility] [address] [place] [phone] Christi Hollis ANP 02/15/2024 1:45 PM EST Office Visit [facility] [address] [place] [phone] Christi Hollis ANP ALFONSO (obstructive sleep apnea) (Primary Dx); Class 1 obesity with serious comorbidity and body mass index (BMI) of 34.0 to 34.9 in adult, unspecified obesity type; Encounter for immunization; Tobacco use disorder; Instability of left shoulder joint 02/15/2024 Travel from Last 3 Months Immunizations Name Administration Dates Next Due Influenza, seasonal, injectable, preservative fr ee 02/15/2024 Tdap 10/30/2023 Social History Tobacco Use Types Packs/Day Years Used Date Smoking Tobacco: Every Day Cigarettes 1 19.2 Started: 2005 Passive Smoke Exposure: Current Smokeless Tobacco: Current Tobacco Cessation:Ready to Q uit: Not Asked; Counseling Given: Not Answered Comments:Will followup in Pharmacy smoking cessation program on 01/03/23 Depression Answer Date Recorded Patient Health Questionnaire-9 Score 9 02/15/2024 Patient Health Questionnaire-9 Score 9 02/15/2024 Last PHQ-9: Questionnaire Data Not on file 1 04/17/2023 Housing Stability Answer Date Recorded What is your housing situation today? I have housing today, but I am worried about losing housing in the future 02/15/[address] you li ve. Do you have problems with any of the following? None of the above 02/15/2024 Food Insecurity Answer Date Recorded Within the past 12 months, y ou worried that your food would run out before you got money to buy more: Sometimes True 2023 Within the past 12 months,th e food you bought just didn't last and you didn't have enough money to get more: Sometimes True 02/06/2024 Transportation Answer Date Recorded In the past 12 months, has l ack of transportation kept you from medical appts, meetings, work or from getting things needed for daily living? No 02/06/2024 Utilities Answer Date Recorded In the past 12 months, has t he electric, gas, oil or water company threatened to shut off services in your home? No 02/06/2024 Depression Answer Date Recorded Patient Health Questionnaire-2 Score 2 02/15/2024 Internet Access Answer Date Recorded Internet Access Q1 Yes 02/06/2024 Internet Access Q2 Not on file 02/06/2024 Sex and Gender Information Value Date Recorded Sex Assigned at Male 01/02/2022 10:33 AM EDT Legal Sex Male 10:33 AM EDT Gender Identity Male 01/02/2022 10:33 AM EDT Sexual Orientation Straight 01/02/2022 10 :33 AM EDT Last Filed Vital Signs Vital Sign Reading Time Taken Comments Blood Pressure 140/91 02/15/2024 1:42 PM EST Pulse 80 02/15/2024 1:42 PM EST Temperature 36.6 ??C (97.9 ??F) 02/15/2024 1:42 PM ES T Respiratory Rate 14 02/15/2024 1:42 PM EST Oxygen Saturation 99% 02/15/2024 1:42 PM EST Inhaled Oxygen Concentration - - Weight 104 kg (228 lb 12.8 oz) 02/15/2024 1:42 P M EST Height 172.7 cm (5' 8 ) 02/15/2024 1:42 PM EST Body Mass Index 34.79 02/15/2024 1:42 PM EST Plan of Treatment Health Maintenance Due Date Last Done Comments HIV Screening 1984 Lipid Panel 1984 Family Planning (PISQ) 02/24/1999 Hepatitis C Screening 02/24/2002 Hepatitis B Vaccines (1 of 3 - 19+ 3-dose series) 02/24/2003 Pneumococcal Vaccine: Pediatrics (0 to 5 Years) and At-Risk Patients (6 to 49) Years) (1 of 2 - PCV) 02/24/2003 COVID-19 Vaccine (1 - 2023-2 5 season) 2023 Depression Monitoring (PHQ-9) 08/15/2024, 02/15/2024 Alcohol/Substance Use Screening 02/14/2025 02/15/2024 Depression Screening 02/14/2025 02/15/2024, 02/15/2024 SDOH Screening 02/14/2025 02/15/2024 Tobacco Screening 02/14/2025 02/15/2024 DTaP/Tdap/Td Vaccines (2 - T d or Tdap) 10/29/2033 10/30/2023 Zoster Vaccines (1 of 2) 02/24/2034 RSV Patients and Patients Aged 60 years or older (1 - 1-dose 75+ series) 02/24/2059 Influenza Vaccine Completed 02/15/2024 HIB Vaccines Aged Out No longer eligi ble based on patient's age to complete this topic HPV Vaccines Aged Out No longer eligi ble based on patient's age to complete this topic Hepatitis A Vaccines Aged Out No long er eligible based on patient's age to complete this topic IPV Vaccines Aged Out No longer eligi ble based on patient's age to complete this topic Meningococcal Vaccine Aged Out No kj niru eligible based on patient's age to complete this topic RSV under 20 months Aged Out No longe r eligible based on patient's age to complete this topic Rotavirus Vaccines Aged Out No longer eligible based on patient's age to complete this topic Goals Goal Patient Goal Type Associated Problems Recent Progress Patient-Stated? Author Quit using tobacco (cigarettes, smokeless, etc) Tobacco Use No Maggie Vazquez, PharmD [place] [address] [place] [address] C3 Care Teams Certified Medical Coder Relationship Specialty Start Date End Date Christi Hollis ANP [address] [place] [id number] PCP - General Family Medicine 09/16/21
== END 2024-05-13 11:04 | disposition home or self-care (01) ==
LOC: HO.HOS 10:22
PROVIDERS: Visit Provider Orthopaedic Surgery
DX: M25.312 Other instability, left shoulder (principal)
CPT/HCPCS: 99213

== ENCOUNTER → 2024-05-13 10:22 | Outpatient (BNVA) | payer MEDICAID, SELFPAY | PROVIDERS: Visit Provider Orthopaedic Surgery | DX: M25.312 Other instability, left shoulder (principal) | CPT/HCPCS: 99212 ==